=== PATIENT | female | born 1990 | race American Indian/Alaskan Native ===

== ENCOUNTER 2017-03-20 00:02 | Emergency (ER) | payer OTHER ==
[2017-03-20 00:22] VITALS: BP 160/115
[2017-03-20 00:34] LABS: Basophils % (Auto) 0.6 % (0.0-1.8); Eosinophils % (Auto) 1.2 % (0.0-4.3); Hematocrit 40.5 % (30.3-42.9); Hemoglobin 13.6 gm/dl (10.1-14.3); Mean Corpuscular HGB Conc 34 % (30-34); Mean Corpuscular Hemoglobin 30 pg (28-32); Mean Corpuscular Volume 88 fl (79-97); Platelet Count 206 K/mm3 (140-440); Red Blood Count 4.59 M/mm3 (3.65-5.03); Red Cell Distribution Width 15.4 % (13.2-15.2); White Blood Count 11.2 K/mm3 (4.5-11.0)
[2017-03-20 00:44] LABS: INR 0.95 (0.87-1.13)
[2017-03-20 00:45] LABS: Partial Thromboplastin Time 29.2 Sec. (24.2-36.6)
[2017-03-20 00:59] LABS: Anion Gap 20 mmol/L; Blood Urea Nitrogen 10 mg/dL (7-17); Calcium 9.2 mg/dL (8.4-10.2); Carbon Dioxide 23 mmol/L (22-30); Chloride 101.5 mmol/L (98-107); Glucose 100 mg/dL (65-100); Potassium 3.9 mmol/L (3.6-5.0); Sodium 141 mmol/L (137-145)
== END 2017-03-20 01:12 | disposition left against medical advice (07) ==
LOC: ED 00:02
DX: R03.0 Elevated blood-pressure reading, without diagnosis of hypertension (principal); Z53.21 Procedure and treatment not carried out due to patient leaving prior to being seen by health care provider
CPT/HCPCS: 36415; 80048; 84484; 84703; 85025; 85610; 85730; 93005; 93010

== ENCOUNTER 2017-08-28 21:21 | Emergency (ER) | payer SELFPAY ==
[2017-08-28 22:14] VITALS: BP 161/104
== END 2017-08-28 22:32 | disposition left against medical advice (07) ==
LOC: ED 21:21
DX: R11.2 Nausea with vomiting, unspecified (principal); R10.9 Unspecified abdominal pain; Z53.21 Procedure and treatment not carried out due to patient leaving prior to being seen by health care provider

== ENCOUNTER 2018-08-25 19:32 | Emergency (ER) | payer SELFPAY ==
--- NOTE | 2018-08-25 20:17 | Emergency Department Report ---
ED General Adult HPI - General Chief complaint: Back Pain/Injury Stated complaint: LOW BACK PAIN Source: patient Mode of arrival: Ambulatory Limitations: No Limitations - History of Present Illness Initial comments: This is a 28-year-old -Chinese female who presents with low back pain, pelvic pain, and vaginal bleeding for 3 days. Patient states "I think I'm ". She reports a history of irregular periods. She thinks her last period was 05/20/2073. She has not started on normal menses and moderate. She has not taken a home test. Ab0. She is reporting some suprapubic cramping and low back pain that is nonradiating. She reports pain is 5 out of 10 on pain scale and a dull achy sensation to the lower back. She denies frequency, urgency, dysuria, vaginal discharge, chest pain, shortness of breath, dizziness, nausea or vomiting.. Onset/Timin -: days(s) Location: back, abdomen Radiation: non-radiation Severity scale (0 -10): 5 Quality: aching, dull Consistency: intermittent Improves with: none Worsens with: none Associated Symptoms: headaches. denies: confusion, chest pain, cough, diaphoresis, fever/chills, loss of appetite, malaise, nausea/vomiting, rash, seizure, shortness of breath, syncope, weakness Treatments Prior to Arrival: none - Related Data Previous Rx's Medication Instructions Recorded Last Taken Type Ibuprofen [Motrin 600 MG tab] 600 mg PO Q8H PRN #12 tablet 08/25/18 Unknown Rx Allergies Allergy/AdvReac Type Severity Reaction Status Date / Time No Known Allergies Allergy Verified 03/20/17 00:12 ED Review of Systems ROS: Stated complaint: LOW BACK PAIN Other details as noted in HPI Constitutional: denies: chills, fever Respiratory: denies: cough, shortness of breath, wheezing Cardiovascular: denies: chest pain, palpitations Gastrointestinal: abdominal pain. denies: nausea, diarrhea Genitourinary: abnormal menses Musculoskeletal: back pain. denies: joint swelling, arthralgia Neurological: headache. denies: weakness, paresthesias Psychiatric: denies: anxiety, depression ED Past Medical Hx - Past Medical History Hx Hypertension: Yes Additional medical history: Pt denies. States Family Hx HTN & DM - Surgical History Past Surgical History?: No - Social History Smoking Status: Unknown if ever smoked Substance Use Type: None - Medications Home Medications: Home Medications Medication Instructions Recorded Confirmed Last Taken Type Ibuprofen [Motrin 600 MG tab] 600 mg PO Q8H PRN #12 tablet 08/25/18 Unknown Rx ED Physical Exam - General Limitations: No Limitations General appearance: alert, in no apparent distress - Respiratory Respiratory exam: Present: normal lung sounds bilaterally. Absent: respiratory distress - Cardiovascular Cardiovascular Exam: Present: regular rate, normal rhythm. Absent: systolic murmur, diastolic murmur, rubs, gallop - GI/Abdominal GI/Abdominal exam: Present: soft, tenderness (suprapubic tenderness), normal bowel sounds. Absent: distended, guarding, rebound, rigid, organomegaly, mass, bruit, pulsatile mass, hernia - Back Exam Back exam: Present: full ROM, other (negative straight leg test). Absent: tenderness, CVA tenderness (R), CVA tenderness (L), muscle spasm, paraspinal tenderness, vertebral tenderness, rash noted - Neurological Exam Neurological exam: Present: alert, oriented X3, normal gait - Psychiatric Psychiatric exam: Present: normal affect, normal mood - Skin Skin exam: Present: warm, dry, intact, normal color. Absent: rash ED Course Vital Signs 08/25/18 19:54 Temperature 99.2 F Pulse Rate 88 Respiratory 16 Rate Blood Pressure 188/113 O2 Sat by Pulse 98 Oximetry ED Medical Decision Making - Lab Data Lab Results 08/25/18 Range/Units 20:49 Urine Color Colorless (Yellow) Urine Turbidity Clear (Clear) Urine pH 6.0 (5.0-7.0) Ur Specific [place] 1.001 L (1.003-1.030) Urine Protein <15 mg/dl (Negative) mg/dL Urine Glucose (UA) Neg (Negative) mg/dL Urine Ketones Neg (Negative) mg/dL Urine Blood Neg (Negative) Urine Nitrite Neg (Negative) Urine Bilirubin Neg (Negative) Urine Urobilinogen < 2.0 (<2.0) mg/dL Ur Leukocyte Esterase Neg (Negative) Urine WBC (Auto) 2.0 (0.0-6.0) /HPF Urine RBC (Auto) 1.0 (0.0-6.0) /HPF U Epithel Cells (Auto) < 1.0 (0-13.0) /HPF Urine Bacteria (Auto) 1+ (Negative) /HPF Urine HCG, Qual Negative (Negative) - Medical Decision Making Patient was examined by me. Vitals are normal and patient is in no acute distress. Obtained a urinalysis and urine tests. All labs are unremarkable. On focal exam no spinal tenderness. Patient informed of results. Start ibuprofen for pain. Referral to orthopedic surgery. Referral to gynecology for continued care. Patient discharged home in stable condition. Follow up with PCP in 2-3 days. Critical care attestation.: If time is entered above; I have spent that time in minutes in the direct care of this critically ill patient, excluding procedure time. ED Disposition Clinical Impression: Mechanical low back pain, Vaginal bleeding, abnormal Back pain Qualifiers: Back pain location: low back pain Chronicity: acute Back pain laterality: bilateral Sciatica presence: without sciatica Qualified Code(s): M54.5 - Low back pain Disposition: TO HOME OR SELFCARE Is pt being admited?: No Does the pt Need Aspirin: No Condition: Stable Instructions: Dysfunctional Uterine Bleeding (ED), Acute Low Back Pain (ED), Low Back Strain (ED) Additional Instructions: Rest Use ice or heat on affected area for 20 minutes and off for 2 hours. Take pain medication as needed for pain. Follow up with Primary Care Provider in 2-3 days. Prescriptions: Ibuprofen [Motrin 600 MG tab] 600 mg PO Q8H PRN #12 tablet PRN Reason: Pain Referrals: [facility] [Provider Group] - 3-5 Days [facility] [Outside] - 3-5 Days [facility] [Outside] - 3-5 Days TANA KNUTSON MD [Staff Physician] - 3-5 Days Time of Disposition: 22:23
[2018-08-25 21:20] LABS: Bacteria,Urine 1+ /HPF (Negative); Bilirubin,Urine NEG (Negative); Blood,Urine NEG (Negative); Color,Urine Colorless (Yellow); Protein,Urine <15 mg/dL mg/dL (Negative); Urobilinogen,Urine < 2.0 mg/dL (<2.0)
[2018-08-25 21:24] LABS: HCG Qualitative,Urine Negative (Negative)
[2018-08-25] MEDS ORDERED: CATAPRES ONE (22:53)
[2018-08-25] MEDS ORDERED: CATAPRES PO ONE (22:54)
[2018-08-25 22:55] VITALS: BP 173/117
== END 2018-08-25 23:17 | disposition left against medical advice (07) ==
LOC: ED 19:32
DX: M54.5 Low back pain (principal); N93.9 Abnormal uterine and vaginal bleeding, unspecified; I10 Essential (primary) hypertension
CPT/HCPCS: 81001; 81025; 99283

== ENCOUNTER 2018-10-11 08:22 | Emergency (ER) | payer OTHER ==
[2018-10-11 08:31] VITALS: BP 176/111
[2018-10-11 09:40] LABS: Basophils % (Auto) 0.6 % (0.0-1.8); Eosinophils # (Auto) 0.1 K/mm3 (0.0-0.4); Eosinophils % (Auto) 1.5 % (0.0-4.3); Hematocrit 37.9 % (30.3-42.9); Hemoglobin 12.9 gm/dl (10.1-14.3); Lymphocytes # (Auto) 1.5 K/mm3 (1.2-5.4); Lymphocytes % (Auto) 20.6 % (13.4-35.0); Mean Corpuscular HGB Conc 34 % (30-34); Mean Corpuscular Volume 88 fl (79-97); Monocytes # (Auto) 0.4 K/mm3 (0.0-0.8); Monocytes % (Auto) 5.8 % (0.0-7.3); Platelet Count 247 K/mm3 (140-440); Red Blood Count 4.33 M/mm3 (3.65-5.03); Red Cell Distribution Width 14.6 % (13.2-15.2)
[2018-10-11 09:52] LABS: BUN/Creatinine Ratio 15; Blood Urea Nitrogen 9 mg/dL (7-17); Calcium 9.1 mg/dL (8.4-10.2); Hemolysis Index 12
[2018-10-11 10:02] LABS: Bilirubin,Urine NEG (Negative); Blood,Urine NEG (Negative); Color,Urine Straw (Yellow); Protein,Urine <15 mg/dL mg/dL (Negative); Urobilinogen,Urine < 2.0 mg/dL (<2.0); WBC,Urine < 1.0 /HPF (0.0-6.0)
--- NOTE | 2018-10-11 10:05 | Emergency Department Report ---
ED General Adult HPI - General Chief complaint: Medical Clearance Stated complaint: INCISION/IRRITATION Time Seen by Provider: 10/11/18 09:05 Source: patient Mode of arrival: Ambulatory Limitations: No Limitations - History of Present Illness Initial comments: This is a 28-year-old female nontoxic, well nourished in appearance, no acute signs of distress presents to the ED with c/o of intermittent scar pain x10 years. Patient stated she was working yesterday and believes put a lot of strain in the area. Patient denies any trauma. Patient denies any bowel pain, pelvic pain, fever, chills, nausea, vomiting, chest pain, shortness of breath, headache or stiff neck. Patient denies any pain radiation. Patient denies any allergies. -: year(s) Radiation: non-radiation Severity scale (0 -10): 3 Quality: stabbing Consistency: intermittent Improves with: none Worsens with: none Associated Symptoms: denies other symptoms. denies: confusion, chest pain, cough, diaphoresis, fever/chills, headaches, loss of appetite, malaise, na usea/vomiting, rash, seizure, shortness of breath, syncope, weakness Treatments Prior to Arrival: none - Related Data Previous Rx's Medication Instructions Recorded Last Taken Type Ibuprofen [Motrin 600 MG tab] 600 mg PO Q8H PRN #12 tablet 08/25/18 Unknown Rx Ibuprofen [Motrin] 600 mg PO Q8H PRN #20 tablet 10/11/18 Unknown Rx amLODIPine [Norvasc] 10 mg PO DAILY #30 tab 10/11/18 Unknown Rx Allergies Allergy/AdvReac Type Severity Reaction Status Date / Time No Known Allergies Allergy Verified 10/11/18 08:26 ED Review of Systems ROS: Stated complaint: INCISION/IRRITATION Other details as noted in HPI Constitutional: denies: chills, fever Eyes: denies: eye pain, eye discharge, vision change ENT: denies: ear pain, throat pain Respiratory: denies: cough, shortness of breath, wheezing Cardiovascular: denies: chest pain, palpitations Endocrine: no symptoms reported Gastrointestinal: denies: abdominal pain, nausea, diarrhea Genitourinary: denies: urgency, dysuria, discharge Musculoskeletal: denies: back pain, joint swelling, arthralgia Skin: denies: rash, lesions Neurological: denies: headache, weakness, paresthesias Psychiatric: denies: anxiety, depression Hematological/Lymphatic: denies: easy bleeding, easy bruising ED Past Medical Hx - Past Medical History Previous Medical History?: No Hx Hypertension: Yes Additional medical history: Pt denies. States Family Hx HTN & DM - Social History Smoking Status: Never Smoker Substance Use Type: None - Medications Home Medications: Home Medications Medication Instructions Recorded Confirmed Last Taken Type Ibuprofen [Motrin 600 MG tab] 600 mg PO Q8H PRN #12 tablet 08/25/18 Unknown Rx Ibuprofen [Motrin] 600 mg PO Q8H PRN #20 tablet 10/11/18 Unknown Rx amLODIPine [Norvasc] 10 mg PO DAILY #30 tab 10/11/18 Unknown Rx ED Physical Exam - General Limitations: No Limitations General appearance: alert, in no apparent distress - Head Head exam: Present: atraumatic, normocephalic - Neck Neck exam: Present: normal inspection, full ROM - Respiratory Respiratory exam: Present: normal lung sounds bilaterally. Absent: respiratory distress, wheezes, rales, rhonchi, stridor, chest wall tenderness, accessory muscle use, decreased breath sounds, prolonged expiratory - Cardiovascular Cardiovascular Exam: Present: regular rate, normal rhythm, normal heart sounds. Absent: bradycardia, tachycardia, irregular rhythm, systolic murmur, diastolic murmur, rubs, gallop - GI/Abdominal GI/Abdominal exam: Present: soft, normal bowel sounds. Absent: distended, tenderness, guarding, rebound, rigid, diminished bowel sounds - Expanded GI/Abdominal Exam Expanded GI/Abdominal exam: Absent: psoas sign, Austin's sign, Rovsing's sign, tenderness at [place]'s Point, ascites - Extremities Exam Extremities exam: Present: normal inspection, full ROM - Back Exam Back exam: Present: normal inspection, full ROM. Absent: tenderness, CVA tenderness (R), CVA tenderness (L), muscle spasm, paraspinal tenderness, vertebral tenderness, rash noted - Neurological Exam Neurological exam: Present: alert, oriented X3 - Psychiatric Psychiatric exam: Present: normal affect, normal mood - Skin Skin exam: Present: warm, dry, intact, normal color. Absent: rash ED Course Vital Signs 10/11/18 08:27 Temperature 98.8 F Pulse Rate 82 Respiratory 18 Rate Blood Pressure 176/111 [Left] O2 Sat by Pulse 99 Oximetry - Reevaluation(s) Reevaluation #1: 10/11/18 10:23 Patient is speaking in full sentences with no signs of distress noted. ED Medical Decision Making - Lab Data Result diagrams: 10/11/18 09:28 10/11/18 09:28 - Medical Decision Making This is a 28-year-old female that presents with hypertension and residual scar pain. Patient is stable and was examined by me. As per ACEP, patient is asymptomatic from her hypertension so no treatment needed in the ER. I will discharge patient with Norvasc. She was educated on hypertension symptoms, prevention and treatment. Labs unremarkable. Patient was referred to Follow-up with a primary care doctor in 3-5 days or if symptoms worsen and continue return to emergency room as soon as possible. At time of discharge, the patient does not seem toxic or ill in appearance. No acute signs of distress noted. Patient agrees to discharge treatment plan of care. No further questions noted by the patient. Critical care attestation.: If time is entered above; I have spent that time in minutes in the direct care of this critically ill patient, excluding procedure time. ED Disposition Clinical Impression: Pain at surgical incision Hypertension Qualifiers: Hypertension type: unspecified Qualified Code(s): I10 - Essential (primary) hypertension Disposition: -01 TO HOME OR SELFCARE Is pt being admited?: No Does the pt Need Aspirin: No Condition: Stable Instructions: Hypertension (ED), Low Sodium Diet (ED) Additional Instructions: Follow-up with a primary care doctor in 3-5 days or if symptoms worsen and continue return to emergency room as soon as possible. Keep a daily diary of her blood pressure and presented to primary care doctor Prescriptions: Ibuprofen [Motrin] 600 mg PO Q8H PRN #20 tablet PRN Reason: Pain amLODIPine [Norvasc] 10 mg PO DAILY #30 tab Referrals: NED HOU MD [Primary Care Provider] - 3-5 Days PRIMARY MD ELI [Referring] - 3-5 Days ANCA DOMINGUEZ MD [Staff Physician] - 3-5 Days [facility] [Outside] - 3-5 Days [facility] [Outside] - 3-5 Days Forms: Work/School Release Form(ED)
[2018-10-11 10:06] LABS: HCG Qualitative,Urine Negative (Negative)
== END 2018-10-11 10:39 | disposition home or self-care (01) ==
LOC: ED 08:22
DX: L90.5 Scar conditions and fibrosis of skin (principal); I10 Essential (primary) hypertension
CPT/HCPCS: 36415; 80048; 81001; 81025; 85025; 99283